=== PATIENT | male | born 1975 ===

== ENCOUNTER 2024-05-25 07:58 | Day surgery (SDC) | payer BC ==
[~2024-05-25] VITALS: Ht 167.6 cm; Wt 65.3 kg
[~2024-05-25 07:58] MED LIST: HYDR1TAB94 PO; Lactated Ringer's 1,000 ML IV ONE; MULTI VITAMIN1 EACH PO; propofoL 50 ML IV ONE
[2024-05-25] MEDS ORDERED: FLUT.05NI (08:23)
[2024-05-25] MEDS ORDERED: Lactated Ringer's 1,000 ML IV ONE (08:53)
[2024-05-25 10:04] VITALS: BP 126/93
== END 2024-05-25 09:50 | disposition home or self-care (01) ==
LOC: ORSCSDS 07:58
PROVIDERS: Surgery
PROC: 0DJD8ZZ Inspection of Lower Intestinal Tract, Via Natural or Artificial Opening Endoscopic (ICD-10-PCS; principal; 2024-05-25 09:15)
DX: Z12.11 Encounter for screening for malignant neoplasm of colon (principal)
CPT/HCPCS: J2704; J7120